=== PATIENT | female | born 1945 | race Caucasian/White ===

== ENCOUNTER → 2016-07-08 | Outpatient (CLI) | payer MEDICARE, OTHER ==
[~2016-07-08] MED LIST: ASP81TEC PO; OMEP1CAP10 PO; OMG1KC PO; POTA99TA7 PO; TELM1TAB2 PO
--- NOTE | 2016-07-08 20:01 | Diagnostic Imaging Report ---
Bilateral diagnostic mammogram. INDICATION: Asymmetry previously seen in the outer aspect of the right breast. The current study was also evaluated with a Computer Aided Detection (CAD) system. FINDINGS: Scattered fibroglandular densities are seen with scattered benign-appearing calcifications noted. Allowing for technique and positional differences, no suspicious change is seen. IMPRESSION: No significant change. ACR BI-RADS Category 2: Benign findings. Result letter will be mailed to the patient. Note: At least 10% of breast cancer is not imaged by mammography. Dictated by: Dictated on workstation # [id number]
== END ==
LOC: RAD 09:37
PROVIDERS: ATTEND Family Medicine
DX: R92.8 Other abnormal and inconclusive findings on diagnostic imaging of breast (principal)
CPT/HCPCS: 77066